=== PATIENT | male | born 1940 | race Caucasian/White ===

== ENCOUNTER → 2021-11-20 | Outpatient (CLI) | payer MEDICARE, OTHER | LOC: CT 07:40 | DX: D37.09 Neoplasm of uncertain behavior of other specified sites of the oral cavity (principal); M50.30 Other cervical disc degeneration, unspecified cervical region | CPT/HCPCS: 36415; 70491; 82565; 84520; Q9967 ==

== ENCOUNTER 2022-01-13 13:18 | Emergency (ER) | payer MEDICARE, OTHER ==
[~2022-01-13] VITALS: Ht 185.4 cm; Wt 99.8 kg
[2022-01-13] MEDS ORDERED: HYDROCODON-ACE1 EAC4 PO (15:37)
[2022-01-13] MEDS ORDERED: ARTHRITIS PAIN50 GM TOP (15:37)
[2022-01-13] MEDS ORDERED: PAROEX473 ML PO (15:37)
[2022-01-13] MEDS ORDERED: BREO ELLIPTA 21 EACH INH (15:38)
[2022-01-13] MEDS ORDERED: BENICAR40 MG PO (15:38)
[2022-01-13] MEDS ORDERED: PRAVASTATIN SOD40 MG PO (15:38)
[2022-01-13] MEDS ORDERED: AMLODIPINE BESYL5 MG PO (15:38)
[2022-01-13] MEDS ORDERED: METOPROLOL TART50 MG PO (15:38)
[2022-01-13] MEDS ORDERED: ASPIRIN EC81 MG PO (15:39)
[2022-01-13] MEDS ORDERED: NITROGLYCERIN0.4 MG SL (15:39)
[2022-01-13 16:04] LABS: HEMOGLOBIN 13.8 gm/dl (14.0-17.5); RED BLOOD COUNT 4.39 M/UL (4.20-5.50); WHITE BLOOD COUNT 10.1 K/UL (4.5-11.0)
[2022-01-13 16:15] LABS: BUN/CREATININE RATIO 25 (0-10)
== END 2022-01-13 15:55 | disposition short-term general hospital (02) ==
LOC: ER1 13:18
PROVIDERS: Emergency Medicine
DX: S11.90XA Unspecified open wound of unspecified part of neck, initial encounter (principal); I25.2 Old myocardial infarction; I11.9 Hypertensive heart disease without heart failure; E78.5 Hyperlipidemia, unspecified; Z85.21 Personal history of malignant neoplasm of larynx; X58.XXXA Exposure to other specified factors, initial encounter
CPT/HCPCS: 80053; 85025; 99284

== ENCOUNTER → 2022-04-27 | Outpatient (CLI) | payer MEDICARE, OTHER ==
[~2022-04-27] MED LIST: AMLODIPINE BESYL5 MG PO; ARTHRITIS PAIN50 GM TOP; ASPIRIN EC81 MG PO; BENICAR40 MG PO; BREO ELLIPTA 21 EACH INH; HYDROCODON-ACE1 EAC4 PO; METOPROLOL TART50 MG PO; NITROGLYCERIN0.4 MG SL; PAROEX473 ML PO; PRAVASTATIN SOD40 MG PO
== END ==
LOC: KOH-I 09:30
DX: C06.9 Malignant neoplasm of mouth, unspecified (principal); R91.1 Solitary pulmonary nodule; K80.80 Other cholelithiasis without obstruction
CPT/HCPCS: 70490; 71250